=== PATIENT | female | born 1985 | race African-American/Black ===

== ENCOUNTER 2016-10-14 15:58 | Emergency (ER) | payer OTHER ==
[~2016-10-14] VITALS: Ht 172.7 cm; Wt 127.0 kg
[~2016-10-14 15:58] MED LIST: ADVIL MIGRAINE200 M1 PO; BACTRIM DS TAB1 EACH PO; BENADRYL25 MG PO; EXCEDRIN MIGRA1 EAC1 PO; FLEXERIL PO; IBUPROFEN 600600 M1 PO; IBUPROFEN 800800 M1 PO; MACROBID 100 M100 M1 PO; MOBIC15 MG PO; PHENERGAN25 MG RECTAL; PRENATAL PO; ULTRAM 50MG TAB50 MG PO
[2016-10-14] MEDS ORDERED: MOBIC7.5 MG PO (16:38)
[2016-10-14] MEDS ORDERED: TRAMADOL 50 MG50 MG PO (17:01)
[2016-10-14] MEDS ORDERED: PREDNISONE 20 M20 MG PO (17:04)
[2016-10-14 17:39] VITALS: BP 144/87
== END 2016-10-14 17:40 | disposition home or self-care (01) ==
LOC: ER 15:58
DX: M77.52 Other enthesopathy of left foot and ankle (principal); I10 Essential (primary) hypertension; F41.9 Anxiety disorder, unspecified

== ENCOUNTER 2017-05-20 01:09 | Emergency (ER) | payer OTHER ==
[~2017-05-20] VITALS: Ht 167.6 cm; Wt 99.8 kg
[~2017-05-20 01:09] MED LIST changes: +MOBIC7.5 MG PO; +PREDNISONE 20 M20 MG PO; +TRAMADOL 50 MG50 MG PO
== END 2017-05-20 03:32 | disposition home or self-care (01) ==
LOC: ER 01:09
DX: G43.909 Migraine, unspecified, not intractable, without status migrainosus (principal); I10 Essential (primary) hypertension; F41.9 Anxiety disorder, unspecified

== ENCOUNTER 2018-11-14 09:52 | Emergency (ER) | payer OTHER ==
[~2018-11-14] VITALS: Ht 162.6 cm; Wt 117.9 kg
[2018-11-14] MEDS ORDERED: AMOXICILLIN 50500 M1 PO (11:07)
[2018-11-14] MEDS ORDERED: IBUPROFEN 800800 M1 PO (11:07)
[2018-11-14 11:25] VITALS: BP 132/87
== END 2018-11-14 11:26 | disposition home or self-care (01) ==
LOC: ER 09:52
DX: R07.0 Pain in throat (principal); I10 Essential (primary) hypertension; F41.9 Anxiety disorder, unspecified